=== PATIENT | male | born 1995 | race Hispanic/Latino ===

== ENCOUNTER 2022-05-15 21:46 | Emergency (ER) | payer OTHER ==
[~2022-05-15] VITALS: Ht 172.7 cm; Wt 67.6 kg
[2022-05-15] MEDS ORDERED: CYCLOBENZAPRINE HCL 10 MG TABLET PO ONE (22:00)
[2022-05-15] MEDS ORDERED: KETOROLAC 60 MG VIAL (30MG/ML) IM ONE ×2 (22:00→22:13)
[2022-05-15] MEDS ORDERED: CYCLOBENZAPRINE HCL 10 MG TABLET ONE (22:13)
[2022-05-15] MEDS ORDERED: CYCL10TA16 PO (22:44)
[2022-05-15] MEDS ORDERED: IBUP-2071 PO (22:44)
[2022-05-15 22:46] VITALS: BP 129/79
== END 2022-05-15 22:51 | disposition home or self-care (01) ==
LOC: EDH 21:46
DX: S29.012A Strain of muscle and tendon of back wall of thorax, initial encounter (principal); Z79.1 Long term (current) use of non-steroidal anti-inflammatories (NSAID); X58.XXXA Exposure to other specified factors, initial encounter; Y93.89 Activity, other specified; Y92.89 Other specified places as the place of occurrence of the external cause; Y99.8 Other external cause status
CPT/HCPCS: 99283; 72072; 96372; J1885